=== PATIENT | female | born 1950 | race Caucasian/White ===

== ENCOUNTER 2017-05-06 08:19 | Day surgery (SDC) | payer MEDICARE ==
[~2017-05-06] VITALS: Ht 167.6 cm; Wt 69.1 kg
[~2017-05-06 08:19] MED LIST: BAYER CHEWABLE81 MG PO; CELEXA20 MG PO; CRESTOR40 MG PO; DEXILANT60 MG PO; HYDROCODONE-APA1 TAB PO; KLONOPIN0.5 MG PO; LASIX40 MG PO; PROZAC20 MG PO
[2017-05-06 09:37] LABS: BASOPHILS 0.3 % (0-2); EOSINOPHILS 0.8 % (0-7); HEMATOCRIT 27.3 % (36.0-48.0); HEMOGLOBIN 9.1 g/dL (12-16); IMMATURE GRANULOCYTES 0.3 % (0-5); LYMPHOCYTES 16.4 % (15-50); MCH 39.7 pg (26.0-34.0); MCHC 33.3 g/dL (31.0-37.0); MCV 119.2 fL (80.0-100.0); MEAN PLATELET VOLUME 10.2 fL (7.4-10.4); MONOCYTES 10.4 % (2-11); NEUTROPHILS 71.8 % (40-80); RBC 2.29 10x6/uL (4.00-5.40); RDW 16.4 % (11.5-14.5); WBC 3.8 10x3/uL (4.8-10.8)
[2017-05-06 09:46] LABS: PLATELET COUNT 96 10x3/uL (130-400)
[2017-05-06 09:48] LABS: CALC OSMOLALITY 272 mosm/kg (275-300); CALCIUM 9.3 mg/dL (8.5-10.1); CARBON DIOXIDE 27.5 mmol/L (21.0-32.0); CHLORIDE - SERUM 102 mmol/L (98-107); CREATININE - SERUM 0.7 mg/dL (0.6-1.3); GLUCOSE 91 mg/dL (74-106); POTASSIUM - SERUM 3.6 mmol/L (3.5-5.1); SODIUM 137 mmol/L (136-145); UREA NITROGEN 9 mg/dL (7-18); eGFR NON AFRICAN AMERICAN 88 mL/min (90-120)
[2017-05-06 10:06] LABS: PLATELET ESTIMATE DECREASED
[2017-05-06] MEDS ORDERED: XANAX1 MG PO (10:06)
[2017-05-06] MEDS ORDERED: CYCLOBENZAPRINE10 MG PO (10:07)
[2017-05-06] MEDS ORDERED: MOBIC7.5 MG PO (10:08)
[2017-05-06] MEDS ORDERED: VENTOLIN HFA18 GM INH (10:09)
[2017-05-06] MEDS ORDERED: ATROVENT 0.02%2.5 ML UPD (10:10)
[2017-05-06] MEDS ORDERED: CHERATUSSIN AC473 ML PO (10:11)
[2017-05-06 10:23] VITALS: BP 98/53; Ht 167.6 cm; Wt 69.1 kg
--- NOTE | 2017-05-06 12:18 | NUR ---
AMAN FULL LIQUID DIET WELL STATES TRIED TO GO TO BATHROOM BUT ONLY PASSED GAS. PT STATES FEELS WELL AND READY FOR DC.
--- NOTE | 2017-05-06 12:27 | NUR ---
1225 PIV DC W/CATHETER TIP INTACT AMAN WELL VSS EXPLAINED CAN GET DRESSED THIS NURSE WILL RETURN W/DC TEACHING PT VU
--- NOTE | 2017-05-06 12:37 | NUR ---
1230 DC TEACHING COMPLETE PT MARGARITA WC CALLED FRIEND GETTING CAR
--- NOTE | 2017-05-06 15:57 | OP ---
PATIENT NAME: CHANDA WEINER MEDICAL RECORD: [id number] :46 LOCATION:D.FORMERLY [facility] [place] ADMISSION DATE: SURGEON: OSKAR WONG DO DATE OF OPERATION: 05/06/2017 PROCEDURES: Colonoscopy with polypectomy. INDICATIONS FOR PROCEDURE: Screening for colorectal cancer. SCOPE: Olympus video pediatric colonoscope. MEDICATIONS: Propofol 400 mg IV per anesthesia. WITHDRAWAL TIME: 15 minutes. ESTIMATED BLOOD LOSS: Minimal. COMPLICATIONS: None. FINDINGS: Informed consent was given. The patient was made comfortable with the above medication. After reaching an adequate level of sedation by slow IV push, the patient was placed on her left side. A digital rectal examination was performed and revealed some mild nonbleeding external hemorrhoids. The endoscope was then advanced under direct visualization through the rectum to the terminal ileum. The scope was slowly withdrawn and the mucosa was carefully examined. The prep was fair to good with a moderate amount of seeds encountered making suction of all the liquid and stool difficult and impossible. For this reason, small polyps could have potentially been missed. There was a single polyp identified in the transverse colon, which was small and sessile. It measured approximately 5-6 mm in size. It was removed using hot forceps. It was completely retrieved and submitted to pathology. There were a few small-mouth diverticula throughout the entire colon of mild severity. In the rectum, retroflexion was performed with visualization of small nonbleeding internal hemorrhoids. The scope was then withdrawn from the patient. The patient tolerated the procedure well and there were no complications. IMPRESSION: 1. A single benign-appearing sessile transverse colon polyp removed with hot forceps. 2. Mild pandiverticulosis. 3. Internal and external hemorrhoids, which were small and nonbleeding. PLAN AND RECOMMENDATIONS: 1. Discharge home when recovery parameters are met. 2. Continue high-fiber diet. 3. Continue current medications. 4. Recommend a repeat colonoscopy in 3 years based on the patient's personal history of cancer of the breast as well as personal history of polyps and a prep which made complete visualization of the colon difficult to impossible. TRANSINT:[id number] Voice Confirmation ID: [id number] DOCUMENT ID: [id number] OPERATIVE REPORT [id number] CHANDA WEINER OSKAR WONG DO at 2140 CC: [id number] DICTATION DATE: 05/06/17 1144 AXLE BEARING POLISHER: 05/06/17 1434 [facility] 05/06/17 [place] [id number] [place] [id number]
== END 2017-05-06 12:43 | disposition home or self-care (01) ==
LOC: D.OPS 08:19
PROVIDERS: Anesthesiology
DX: Z12.11 Encounter for screening for malignant neoplasm of colon (principal); F17.200 Nicotine dependence, unspecified, uncomplicated; J44.9 Chronic obstructive pulmonary disease, unspecified; Z01.812 Encounter for preprocedural laboratory examination; D12.3 Benign neoplasm of transverse colon; K64.4 Residual hemorrhoidal skin tags; K64.8 Other hemorrhoids

== ENCOUNTER 2017-06-17 10:55 | Day surgery (SDC) | payer MEDICARE ==
[~2017-06-17] VITALS: Ht 165.1 cm; Wt 69.1 kg
[~2017-06-17 10:55] MED LIST changes: +ATROVENT 0.02%2.5 ML UPD; +CHERATUSSIN AC473 ML PO; +CYCLOBENZAPRINE10 MG PO; +MOBIC7.5 MG PO; +VENTOLIN HFA18 GM INH; +XANAX1 MG PO
[2017-06-17 12:11] LABS: BASOPHILS 0.2 % (0-2); EOSINOPHILS 1.9 % (0-7); HEMOGLOBIN 10.8 g/dL (12-16); IMMATURE GRANULOCYTES 0.2 % (0-5); LYMPHOCYTES 18.2 % (15-50); MCH 38.2 pg (26.0-34.0); MCHC 33.8 g/dL (31.0-37.0); MCV 113.1 fL (80.0-100.0); MEAN PLATELET VOLUME 8.9 fL (7.4-10.4); MONOCYTES 7.6 % (2-11); NEUTROPHILS 71.9 % (40-80); RBC 2.83 10x6/uL (4.00-5.40); RDW 12.3 % (11.5-14.5); WBC 5.3 10x3/uL (4.8-10.8)
[2017-06-17 12:23] LABS: CALC OSMOLALITY 274 mosm/kg (275-300); CALCIUM 8.8 mg/dL (8.5-10.1); CARBON DIOXIDE 29.5 mmol/L (21.0-32.0); CHLORIDE - SERUM 102 mmol/L (98-107); CREATININE - SERUM 0.8 mg/dL (0.6-1.3); GLUCOSE 88 mg/dL (74-106); POTASSIUM - SERUM 3.1 mmol/L (3.5-5.1); SODIUM 138 mmol/L (136-145); UREA NITROGEN 12 mg/dL (7-18); eGFR NON AFRICAN AMERICAN 75 mL/min (90-120)
[2017-06-17 12:42] LABS: PLATELET COUNT 167 10x3/uL (130-400)
[2017-06-17 13:56] VITALS: BP 99/61; Ht 165.1 cm; Wt 69.1 kg
--- NOTE | 2017-06-17 14:56 | NUR ---
1450- PT BACK TO ROOM, HOB ELEVATED. FULL LIQUIDS OFFERED. FAMILY AT BEDSIDE. VSS. 1455- DR. WONG AT BEDSIDE, DISCUSSING PROCEDURAL FINDINGS WITH FAMILY AND PT. WILL MONITOR.
--- NOTE | 2017-06-17 15:30 | NUR ---
1520- PT UP OOB TO BR, VOIDED WITHOUT DIFFICULTY. IV D/C'D, PT TOLERATED. CATHETER INTACT. 1525- DISCHARGE INSTRUCTIONS COMPLETED. PAPERWORK SIGNED AND PT VERBALIZES UNDERSTANDING. 1530- PT DISCHARGED VIA WHEELCHAIR WITH FAMILY.
--- NOTE | 2017-06-18 14:43 | OP ---
PATIENT NAME: CHANDA WEINER MEDICAL RECORD: [id number] :46 LOCATION:D.FORMERLY [facility] ADMISSION DATE: SURGEON: OSKAR WONG DO DATE OF OPERATION: 06/17/2017 PROCEDURE: EGD with biopsies. INDICATIONS: Nausea and vomiting, unspecified abdominal pain, melena. SCOPE: Olympus video gastroscope. MEDICATIONS: Propofol 140 mg IV per anesthesia. ESTIMATED BLOOD LOSS: Minimal. COMPLICATIONS: None. FINDINGS: Informed consent was given. The patient was made comfortable with the above medication. After reaching an adequate level of sedation by slow IV push, the patient was placed on her left side. The endoscope was then advanced under direct visualization through the mouth to the second portion of the duodenum. The upper third of the esophagus appeared normal. In the middle third and distal third of the esophagus, there was mild esophageal candidiasis present. At the GE junction, there was some mild evidence of LA class A reflux induced esophagitis without ulcerations. The endoscope was advanced beyond the GE junction into the stomach and retroflexed to view the cardia, where a small sliding hiatal hernia was present. Throughout the entire stomach, there were some patchy areas of granularity and some patchy areas of erythema consistent with possible gastritis. Biopsies were taken to submit for histology and to rule out H. pylori. The endoscope was advanced beyond the pylorus into the duodenum where the bulb and second portion of the duodenum appeared normal. The endoscope was withdrawn from the patient. The patient tolerated the procedure well and there were no complications. IMPRESSION: 1. Esophageal candidiasis. 2. LA class A reflux induced esophagitis. 3. Gastritis. PLAN AND RECOMMENDATIONS: 1. Discharge home when recovery parameters are met. 2. Follow up on biopsy specimen results. 3. Fluconazole 100 mg daily times 21 days for the esophageal candidiasis. 4. If symptoms do not improve with treatment of candidiasis, consider changing PPI and potentially adding Carafate suspension. 5. Follow up in GI clinic as needed. 6. Notify the clinic if melena returns. TRANSINT:[id number] Voice Confirmation ID: [id number] DOCUMENT ID: [id number] OPERATIVE REPORT [id number] CHANDA WEINER OSKAR WONG DO at 1629 CC: [id number] DICTATION DATE: 06/17/17 1439 MODELING ANALYST: 06/17/17 1750 DEP SD[facility] 06/17/17 [facility] [address] [place] [place] [address]
== END 2017-06-17 15:30 | disposition home or self-care (01) ==
LOC: D.OPS 10:55
PROVIDERS: Anesthesiology
DX: B37.81 Candidal esophagitis (principal); K21.0 Gastro-esophageal reflux disease with esophagitis; K29.70 Gastritis, unspecified, without bleeding; Z01.812 Encounter for preprocedural laboratory examination